=== PATIENT | male | born 1985 | race Caucasian/White ===

== ENCOUNTER 2018-06-12 14:46 | Emergency (ER) | payer SELFPAY ==
[~2018-06-12] VITALS: Ht 177.8 cm; Wt 91.0 kg
[2018-06-12 16:50] LABS: BASOPHILS % 0.8 % (0.0-2.0); EOSINOPHILS % 0.9 % (0.0-5.0); HEMOGLOBIN. 10.1 g/dL (14.0-18.0); LYMPHOCYTES % 40.1 % (20.0-50.0); MEAN CORPUSCULAR HEMOGLOBIN 27.4 pg (28.0-32.0); MEAN CORPUSCULAR VOLUME 83.7 fL (80.0-94.0); MEAN PLATELET VOLUME 8.5 fl (7.4-10.4); MONOCYTES % 4.9 % (2.0-8.0); NEUTROPHILS % 53.3 % (40.0-76.0); PLATELET 558 x1000/uL (130-400); RED CELL DISTRIBUTION WIDTH 16.9 % (11.6-14.6)
[2018-06-12 16:54] LABS: CHLORIDE 105 mEq/L (98-107)
[2018-06-12 17:03] LABS: INR 1.1; PROTHROMBIN TIME 11.2 sec (9.1-11.1)
[2018-06-12] MEDS ORDERED: MORPHINE SULFATE 10 MG/ML CPJ IM ONE (17:15)
[2018-06-12] MEDS ORDERED: ONDANSETRON 4MG ODT PO ONE (17:15)
[2018-06-12 18:21] LABS: CLARITY URINE CLEAR (CLEAR); COLOR URINE YELLOW (YELLOW); KETONES URINE NEGATIVE (NEGATIVE); LEUKOCYTE ESTERASE URINE NEGATIVE (NEGATIVE); NITRITE URINE NEGATIVE (NEGATIVE); OCCULT BLOOD URINE NEGATIVE (NEGATIVE); PH URINE 5.5 (4.5-8.0); PROTEIN URINE NEGATIVE (NEGATIVE); UROBILINOGEN URINE 0.2 E.U./dL (0.2-1.0)
[2018-06-12 18:45] VITALS: BP 124/77
== END 2018-06-12 19:09 | disposition home or self-care (01) ==
LOC: ER 14:46
DX: R10.9 Unspecified abdominal pain (principal); N28.1 Cyst of kidney, acquired; R31.9 Hematuria, unspecified; E11.9 Type 2 diabetes mellitus without complications; F17.200 Nicotine dependence, unspecified, uncomplicated; Z90.49 Acquired absence of other specified parts of digestive tract; Z98.890 Other specified postprocedural states; Z88.8 Allergy status to other drugs, medicaments and biological substances; Z88.1 Allergy status to other antibiotic agents
CPT/HCPCS: 36415; 76705; 80053; 81003; 83690; 85025; 85610; 96372; 99285; J2270; Q0162

== ENCOUNTER 2018-09-17 12:17 | Inpatient (IN) | payer SELFPAY ==
[~2018-09-17] VITALS: Ht 172.7 cm; Wt 81.8 kg
[2018-09-17] MEDS ORDERED: MORPHINE SULFATE 10 MG/ML CPJ IM ONE (19:15)
[2018-09-17] MEDS ORDERED: DIATR MEGLU/DIATRIZOATE SOLN 30ML PO ONE (20:00)
[2018-09-17] MEDS ORDERED: DIATR MEGLU/DIATRIZOATE SOLN 30ML ONE (20:11)
[2018-09-17 20:22] LABS: HEMATOCRIT. 32.1 % (42.0-52.0); HEMOGLOBIN. 10.2 g/dL (14.0-18.0); MEAN CORPUSCULAR HEMOGLOBIN 25.1 pg (28.0-32.0); MEAN CORPUSCULAR VOLUME 78.7 fL (80.0-94.0); MEAN PLATELET VOLUME 8.6 fl (7.4-10.4); PLATELET 429 x1000/uL (130-400); RED BLOOD CELL COUNT 4.08 mill/uL (4.7-6.1); RED CELL DISTRIBUTION WIDTH 20.4 % (11.6-14.6)
[2018-09-17 20:28] LABS: CHLORIDE 97 mEq/L (98-107)
[2018-09-17 20:33] LABS: AMYLASE 26 IU/L (25-115)
[2018-09-17] MEDS ORDERED: HYDROCODONE/ACETAMINOPHEN 5/325MG TABLET PO ONE (20:45)
[2018-09-17] MEDS ORDERED: INSULIN GLARGINE UD 100 UNITS/ML SYR SUBCUT ONE (21:00)
[2018-09-17 21:07] LABS: PLATELET ESTIMATE NORMAL
[2018-09-17] MEDS ORDERED: ONDANSETRON HCL 4MG/2ML INJ IV ONE (21:30)
[2018-09-17 22:12] LABS: INR 1.1; PARTIAL THROMBOPLASTIN TIME 28.4 sec (23.4-31.0); PROTHROMBIN TIME 11.1 sec (9.1-11.1)
[2018-09-17] MEDS ORDERED: MORPHINE SULFATE 4 MG/ML CPJ (NOT FOR IM USE) IV ONE (23:15)
[2018-09-18] VITALS (7 sets, daily range): BP systolic 105–137; BP diastolic 58–97
[2018-09-18] MEDS ORDERED: MORPHINE SULFATE 2 MG/ML CPJ (NOT FOR IM USE) IV PRN (01:00)
[2018-09-18] MEDS ORDERED: IPRATROPIUM/ALBUTEROL 0.5-3(2.5)MG/3ML NEB INH PRN (01:00)
[2018-09-18] MEDS ORDERED: ONDANSETRON HCL 4MG/2ML INJ IV PRN (01:00)
[2018-09-18] MEDS ORDERED: GUAIFENESIN 200MG/10ML SUGAR FREE UDC PO PRN (01:00)
[2018-09-18] MEDS ORDERED: CLONIDINE 0.1MG TABLET PO PRN (01:00)
[2018-09-18] MEDS ORDERED: DOCUSATE SODIUM 100MG CAPSULE PO PRN (01:00)
[2018-09-18] MEDS ORDERED: ACETAMINOPHEN 650MG/20.3ML UDC GT PRN (01:00)
[2018-09-18] MEDS ORDERED: MAGNESIUM/ALUMINUM HYDROXIDE/SIMETHICONE 30ML UDC PO PRN (01:00)
[2018-09-18] MEDS ORDERED: ACETAMINOPHEN 325MG TABLET PO PRN (01:00)
[2018-09-18] MEDS ORDERED: ACETAMINOPHEN 650MG SUPP PR PRN (01:00)
[2018-09-18] MEDS: HYDROCODONE/ACETAMINOPHEN 5/325MG TABLET PO PRN ×2 (01:55→10:53)
[2018-09-18] MEDS ORDERED: SODIUM CHLORIDE 0.45% 1,000 ML IV SCH (04:09)
[2018-09-18] MEDS ORDERED: NA PHOS,M-B/NA PHOS,DI-BA ENEMA 118ML PR PRN (04:10)
[2018-09-18] MEDS ORDERED: MORPHINE SULFATE 4 MG/ML CPJ (NOT FOR IM USE) IV PRN ×2 (04:12→15:15)
[2018-09-18] MEDS ORDERED: INSU100I28 SQ (05:12)
[2018-09-18] MEDS ORDERED: INSLIS SUBCUT (05:12)
[2018-09-18] MEDS ORDERED: AMYL1CAP59 MT (05:12)
[2018-09-18] MEDS ORDERED: ZOLP10TA2 PO (05:12)
[2018-09-18] MEDS ORDERED: DEXTROSE 50% WATER 50ML SYRINGE IV PRN (06:30)
[2018-09-18] MEDS: SODIUM CHLORIDE 0.9% INJ 3ML FLUSH IVF SCH ×2 (06:52→13:43)
[2018-09-18] MEDS: BLOOD SUGAR DIAGNOSTIC STRIP TEST SCH ×4 (06:52→20:25)
[2018-09-18] MEDS: INSULIN LISPRO 100 UNITS/ML SUBCUT SCH ×4 (08:13→20:36)
[2018-09-18] MEDS: MORPHINE SULFATE 4 MG/ML CPJ (NOT FOR IM USE) IV PRN ×2 (08:42→12:55)
[2018-09-18] MEDS ORDERED: ENOXAPARIN 40MG/0.4ML SYR SUBCUT SCH (09:00)
[2018-09-18] MEDS ORDERED: INSULIN GLARGINE UD 100 UNITS/ML SYR SUBCUT SCH (10:00)
[2018-09-18] MEDS ORDERED: HYDROCODONE/ACETAMINOPHEN 10/325MG TABLET PO PRN (15:00)
[2018-09-18] MEDS ORDERED: PANTOPRAZOLE 40MG DR TABLET PO SCH (15:00)
[2018-09-18] MEDS ORDERED: APIXABAN 5 MG TABLET PO SCH (17:00)
[2018-09-18 17:21] LABS: BASOPHILS % 1.2 % (0.0-2.0); EOSINOPHILS % 0.1 % (0.0-5.0); HEMATOCRIT. 29.3 % (42.0-52.0); HEMOGLOBIN. 9.7 g/dL (14.0-18.0); MEAN CORPUSCULAR HEMOGLOBIN 25.4 pg (28.0-32.0); MEAN CORPUSCULAR VOLUME 77.1 fL (80.0-94.0); MEAN PLATELET VOLUME 8.7 fl (7.4-10.4); MONOCYTES % 4.7 % (2.0-8.0); PLATELET 406 x1000/uL (130-400); RED CELL DISTRIBUTION WIDTH 19.7 % (11.6-14.6)
[2018-09-18 17:29] LABS: CHLORIDE 97 mEq/L (98-107)
[2018-09-18] MEDS ORDERED: POTASSIUM CHLORIDE 20MEQ TABLET SR PO NR (19:30)
[2018-09-18] MEDS ORDERED: LEVOFLOXACIN 500MG TABLET PO SCH (19:30)
[2018-09-18 19:53] LABS: *BARBITURATES SCREEN URINE NEGATIVE (NEGATIVE); *BENZODIAZEPINES SCREEN URINE NEGATIVE (NEGATIVE)
[2018-09-18 19:54] LABS: *AMPHETAMINES SCREEN URINE NEGATIVE (NEGATIVE); *COCAINE SCREEN URINE NEGATIVE (NEGATIVE); CANNABINOID URINE SCREEN NEGATIVE (NEGATIVE); METHADONE URINE SCREEN NEGATIVE (NEGATIVE); OPIATES URINE SCREEN PRESUMTIVE POSITIVE (NEGATIVE); PHENCYCLIDINE URINE SCREEN NEGATIVE (NEGATIVE)
[2018-09-19] MEDS ORDERED: LIPASE/PROTEASE/AMYLASE 4,200/14,200/24,600 UNITS CAP DR PO SCH (07:50)
== END 2018-09-18 22:55 | disposition left against medical advice (07) | DRG 282 ==
LOC: ER 12:17 → 6EST 09-18 01:22 → EDBEDREQTM 09-18 01:29 → EDBEDREQ 09-18 01:29 → ENRESERV 09-18 01:38 → 6EST 09-18 16:07
PROVIDERS: ADMIT Family Medicine; ATTEND Family Medicine
DX: K85.90 Acute pancreatitis without necrosis or infection, unspecified (principal); D63.8 Anemia in other chronic diseases classified elsewhere; E10.9 Type 1 diabetes mellitus without complications; E86.0 Dehydration; F32.9 Major depressive disorder, single episode, unspecified; Z53.21 Procedure and treatment not carried out due to patient leaving prior to being seen by health care provider; I10 Essential (primary) hypertension; Z76.5 Malingerer [conscious simulation]; Z79.4 Long term (current) use of insulin; Z86.718 Personal history of other venous thrombosis and embolism; Z88.9 Allergy status to unspecified drugs, medicaments and biological substances; Z90.49 Acquired absence of other specified parts of digestive tract; Z90.81 Acquired absence of spleen; Z88.8 Allergy status to other drugs, medicaments and biological substances
CPT/HCPCS: 36415; 71046; 74018; 74176; 80048; 80305; 82010; 82150; 82962; 93970; 96372; 96374; 99285; J1650; J1815; J2270; J2405; Q9963